=== PATIENT | male | born 2000 | race Hispanic/Latino ===

== ENCOUNTER 2018-03-28 13:28 | Emergency (ER) | payer OTHER ==
[~2018-03-28] VITALS: Ht 190.5 cm; Wt 115.7 kg
[~2018-03-28 13:28] MED LIST: ALBUTEROL0.09 MG/A1 INH; MEDROL DOSEPAK1 PAC PO; NASONEX0.05 MG/Ac NAS; TESSALON PERLE100 MG PO; ZITHROMAX Z-PA250 M1 PO
[2018-03-28 14:15] LABS: ABSOLUTE BASOPHIL COUNT 0 /CUMM (0.0-0.2); ABSOLUTE EOSINOPHIL COUNT 0.2 /CUMM (0.0-0.7); ABSOLUTE GRANULOCYTE CT 6.4 /CUMM (1.4-6.5); ABSOLUTE LYMPH COUNT 1.9 /CUMM (1.2-3.4); ABSOLUTE MONOCYTE COUNT 0.5 /CUMM (0.10-0.60); BASOPHIL % 0.4 % (0.0-2.0); EOSINOPHIL % 1.9 % (0-5); GRANULOCYTE % 70.9 % (42.2-75.2); HEMATOCRIT 43.5 % (42-52); MEAN CORPUSCULAR HGB 28.6 PG (27.0-31.0); MEAN CORPUSCULAR HGB CONC 34.4 G/DL (33.0-37.0); MEAN CORPUSCULAR VOLUME 83.2 FL (80.0-94.0); MEAN PLATELET VOLUME 8.9 FL (7.4-10.4); PLATELET COUNT 242 /CUMM (130-400); RBC DISTRIBUTION WIDTH 13.7 % (11.5-14.5); RED BLOOD CELL CT 5.23 /CUMM (4.70-6.10)
--- NOTE | 2018-03-28 14:25 | RADIOLOGY REPORT ---
EXAMINATION: XR CHEST CLINICAL INFORMATION: Chest pain, shortness of breath and palpitations. COMPARISON: Chest x-ray 10/05/2016. TECHNIQUE: 2 views of the chest were obtained. FINDINGS: The lung claire are well expanded and appear clear bilaterally. The cardiac silhouette is normal. There are no pleural effusions or pneumothorax. The central pulmonary vasculature is normal. The hilar regions appear normal. There are no acute osseous findings. IMPRESSION: 1. There are no acute cardiopulmonary findings.
--- NOTE | 2018-03-28 17:38 | ED CARDIAC/CP/PALPITATIONS ---
History of Present Illness General Chief Complaint: Chest Pain Stated Complaint: L SIDED RIB PAIN Source: patient Exam Limitations: no limitations Vital Signs & Intake/Output Vital Signs & Intake/Output Vital Signs Date Time Temp Pulse Resp B/P B/P Pulse O2 O2 Flow FiO2 Mean Ox Delivery Rate 03/28 1745 97.2 62 18 132/78 95 Room Air 03/28 1332 96.9 64 18 147/90 99 Room Air Allergies Coded Allergies: Penicillins (Mild, RASH 02/01/16) Reconcile Medications No Known Home Medications Triage Note: 17 Y/O MALE C/O PAIN TO L [facility] X 3 DAYS. STATES PAIN GETS WORSE WITH DEEP INSPIRATION. +SOB PER PT. SPEAKING CLEARLY WITH NO DISTRESS NOTED. PT REPORTS INCREASED DIAPHORESIS OVER LAST FEW DAYS. DENIES COUGH. DENIES N/V/D. EVAL'D BY MOI MALAGON IN TRIAGE Triage Nurses Notes Reviewed? yes HPI: 17-year-old male with past medical history significant for functional nonrestrictive heart murmur presents with 3 days of chest pain or shortness of breath. Symptoms are exacerbated with exertion in the heat but not with exertion inside the home. Chest pain is sharp substernal nonradiating. Negative for lightheaded or syncopal episodes. Past History Travel History Traveled to [place] past 21 day No Medical History Any Pertinent Medical History? see below for history Neurological: NONE EENT: NONE Cardiovascular: NONE Respiratory: NONE Gastrointestinal: NONE Hepatic: NONE Renal: NONE Musculoskeletal: NONE Psychiatric: NONE Endocrine: NONE Blood Disorders: NONE Cancer(s): NONE MEDICAL ADMINISTRATIVE SPECIALIST/Reproductive: NONE Surgical History Surgical History: N Psychosocial History What is your primary language Maltese Tobacco Use: Never used Family History Hx Contributory? No Review of Systems Review of Systems Constitutional: Reports: no symptoms. EENTM: Reports: no symptoms. Respiratory: Reports: no symptoms. Cardiovascular: Reports: no symptoms, see HPI. GI: Reports: no symptoms. Genitourinary: Reports: no symptoms. Musculoskeletal: Reports: no symptoms. Skin: Reports: no symptoms. Neurological/Psychological: Reports: no symptoms. Hematologic/Endocrine: Reports: no symptoms. Immunologic/Allergic: Reports: no symptoms. All Other Systems: Reviewed and Negative Physical Exam Physical Exam General Appearance: well developed/nourished, comfortable Neck: normal inspection, supple, full range of motion Respiratory: normal breath sounds, chest non-tender, lungs clear Cardiovascular: regular rate/rhythm, normal peripheral pulses, Negative for murmur. Gastrointestinal: soft, non-tender Skin: intact, normal color Core Measures ACS in differential dx? Yes CVA/TIA Diagnosis No Sepsis Present: No Sepsis Focused Exam Completed? No Progress Differential Diagnosis: chest pain Plan of Care: Orders Procedure Date/time Status TROPONIN LEVEL 03/28 1530 Complete TROPONIN LEVEL 03/28 133 Complete D-DIMER 03/28 133 Complete COMPREHENSIVE METABOLIC PANEL 03/28 133 Complete CBC WITHOUT DIFFERENTIAL 03/28 133 Complete EKG 03/28 133 Active Laboratory Tests 03/28/18 1545: Troponin I < 0.01 03/28/18 1400: Anion Gap 9, Estimated GFR > 60, BUN/Creatinine Ratio 18.3, Glucose 99, Calcium 9.7, Total Bilirubin 0.5, AST 19, ALT 40, Alkaline Phosphatase 89, Troponin I < 0.01, Total Protein 7.6, Albumin 4.7, Globulin 2.9, Albumin/Globulin Ratio 1.6, D-Dimer High Sensitivty < 200, CBC w Diff NO MAN DIFF REQ, RBC 5.23, MCV 83.2, MCH 28.6, MCHC 34.4, RDW 13.7, MPV 8.9, Gran % 70.9, Lymphocytes % 20.8, Monocytes % 6.0, Eosinophils % 1.9, Basophils % 0.4, Absolute Granulocytes 6.4, Absolute Lymphocytes 1.9, Absolute Monocytes 0.5, Absolute Eosinophils 0.2, Absolute Basophils 0 Initial ED EKG: normal axis, normal intervals, normal p-waves, normal QRS complex, normal sinus rhythm, no ST T wave changes Comments: Patient to follow-up cardiology for further evaluation and return precautions given. Departure Departure Disposition: HOME OR SELF CARE Condition: Stable Clinical Impression Primary Impression: Chest pain Qualifiers: Chest pain type: unspecified Qualified Code: R07.9 - Chest pain, unspecified Referrals: Brennon RUSH,Rei Soto (PCP/Family) Rossy Peña MD Departure Forms: Customer Survey General Discharge Information Prescriptions: Current Visit Scripts No Known Home Medications Critical Care Note Critical Care Note Critical Care Time: non-applicable
[2018-03-28 17:45] VITALS: BP 132/78
== END 2018-03-28 17:52 ==
LOC: ERH 13:28
PROVIDERS: Physician Assistant Medical
DX: R07.89 Other chest pain (principal); R01.1 Cardiac murmur, unspecified
CPT/HCPCS: 71046; 93005; 93010; 96372; J1885